=== PATIENT | female | born 2000 | race Caucasian/White ===

== ENCOUNTER 2022-04-22 21:37 | Emergency (ER) | payer BC ==
[~2022-04-22] VITALS: Ht 149.9 cm; Wt 46.8 kg
[~2022-04-22 21:37] MED LIST: DESOGEN 0.15 MG1 TAB PO; NO HOME MEDICATIONS; PREDNISONE10 MG PO; VENTOLIN0.09 MG IH; ZITHROMAX Z PA250 MG PO; [UNRECOGNIZED DRUG - REMARK]
[2022-04-22 21:44] VITALS: TEMP 97.1
[2022-04-22 22:29] LABS: BASO % 0.5 % (0.0-2.0); EOS # 0.1 K/mm3 (0.0-0.7); EOS % 1.3 % (0.0-4.0); GRAN # 3.4 K/mm3 (1.4-6.5); LYMPH # 2.1 K/mm3 (1.2-3.4); LYMPH % 34.5 % (20.0-51.0); MEAN CELL VOLUME 94 fl (80.0-100.0); MEAN CORPUSCULAR HEMOGLOBIN 32 pg (27-31); MEAN CORPUSCULAR HGB CONC 34 g/dl (33.0-37.0); MEAN PLATELET VOLUME 10.4 fl (7.4-10.4); MONO # 0.5 K/mm3 (0.1-0.6); MONO % 8.5 % (1.7-9.3); PLATELET COUNT 247 K/mm3 (130-400); REDCELL DISTRIBUTION WIDTH-CV 12.5 % (11.5-14.5)
[2022-04-22 22:36] LABS: HEMATOCRIT 35.6 % (37.0-47.0)
[2022-04-22 23:21] LABS: COLLECTION METHOD CLEAN CATCH
[2022-04-22 23:52] LABS: URINE APPEARANCE Clear (CLEAR/HAZY); URINE BLOOD TRACE-INTACT (NEGATIVE); URINE COLOR Yellow (YELLOW); URINE GLUCOSE Negative (NEGATIVE); URINE KETONE Negative (NEGATIVE); URINE NITRATE Negative (NEGATIVE); URINE PROTEIN(semi-quant) 1+ (NEGATIVE); URINE UROBILINOGEN 0.2 E.U/dL (0.2-1.0)
[2022-04-22 23:53] LABS: MUCOUS Present (NOT PRESENT); SQUAMOUS EPITHELIAL 0-2 /hpf (0-10); URINE BACTERIA None Seen /hpf (NONE SEEN); URINE RBC 0-2 /hpf (0-2)
[2022-04-23 00:50] VITALS: BP 109/71; PULSE 83
== END 2022-04-23 00:50 | disposition home or self-care (01) ==
LOC: COL.ER 21:37
PROVIDERS: Physician Assistant
DX: N93.8 Other specified abnormal uterine and vaginal bleeding (principal); F17.210 Nicotine dependence, cigarettes, uncomplicated; Z79.3 Long term (current) use of hormonal contraceptives